=== PATIENT | female | born 1995 | race Caucasian/White ===

== ENCOUNTER 2016-11-03 17:35 | Emergency (ER) | payer OTHER ==
[~2016-11-03] VITALS: Ht 167.6 cm; Wt 51.0 kg
[~2016-11-03 17:35] MED LIST: CYCL-36 PO; DICL50 PO
[2016-11-03 17:36] VITALS: BP 125/89; PULSE 81; RESP 17; TEMP 98.1; O2SAT 99
[2016-11-03] MEDS ORDERED: OMEP20TA PO (18:06)
[2016-11-03] MEDS ORDERED: ONDANSETRON HCL 4 MG/2 ML VIAL IV ONE (18:15)
[2016-11-03] MEDS ORDERED: SODIUM CHLORIDE 0.9% FLUSH 5 ML FLUSH IVF PRN (18:15)
[2016-11-03] MEDS ORDERED: SODIUM CHLOR 0.9% 1000 ML INJ 1,000 ML IV ONE (18:15)
[2016-11-03] MEDS ORDERED: MORPHINE SULFATE 4 MG/ML INJ IV PUSH ONE (18:15)
--- NOTE | 2016-11-03 18:15 | PD ---
HPI Chief Complaint: GI Complaint Time Seen by Provider: 17:59 Travel History International Travel<30 days: No Contact w/Intl Traveler<30days: No Traveled to known affect area: No History of Present Illness HPI 21-year-old woman who presents to the emergency department complaining of abdominal pain. She states she's felt sick for the past week or so. She had nausea and vomiting that she thought was from something she ate. She has a history of gastritis in the past. She states nausea vomiting initially flared up or gastritis but she's having worsening pain in the epigastrium, right upper quadrant, radiates through to the back. She states she gets vomiting after trying to eat anything and the pain is Progressively Worse and so She Came to the Emergency Department. She's Had Chills but No Definite Fevers. No Change in Her Bowel Movement. No Urinary Symptoms. She's Never Had Any Abdominal Surgery. She Was Treated for H. pylori Several Years Ago. History Past Medical History Narrative Medical Gastritis Social History Alcohol Use: No Tobacco Use: No Allergies-Medications (Allergen,Severity, Reaction): Coded Allergies: No Known Allergies (Unverified , 11/03/16) Reported Meds & Prescriptions Reported Meds & Active Scripts Active Reported Omeprazole 20 Mg Tab 20 Mg PO DAILY Review of Systems Except as stated in HPI: all other systems reviewed are Neg Physical Exam Narrative GENERAL: This is a thin 21-year-old woman, uncomfortable but nontoxic. HEAD: Atraumatic. Normocephalic. EYES: Pupils equal and round. No scleral icterus. No injection or drainage. ENT: No nasal bleeding or discharge. Mucous membranes pink and moist. NECK: Trachea midline. No JVD. CARDIOVASCULAR: Regular rate and rhythm. No murmur appreciated. RESPIRATORY: No accessory muscle use. Clear to auscultation. Breath sounds equal bilaterally. GASTROINTESTINAL: Abdomen is flat and soft with moderate epigastric and right upper quadrant tenderness. Positive Arenas's. MUSCULOSKELETAL: No obvious deformities. No edema. NEUROLOGICAL: Awake and alert. No obvious cranial nerve deficits. Motor grossly within normal limits. Normal speech. PSYCHIATRIC: Appropriate mood and affect; insight and judgment normal. Data Data Last Documented VS Vital Signs Date Time Temp Pulse Resp B/P Pulse Ox O2 Delivery O2 Flow Rate FiO2 11/03/16 17:36 98.1 81 17 125/89 99 Orders Complete Blood Count With Diff (11/03/16 18:02) Comprehensive Metabolic Panel (11/03/16 18:02) Lipase (11/03/16 18:02) Urinalysis - C+S If Indicated (11/03/16 18:02) Iv Access Insert/Monitor (11/03/16 18:02) Ecg Monitoring (11/03/16 18:02) Oximetry (11/03/16 18:02) Sodium Chloride 0.9% Flush (Ns Flush) (11/03/16 18:15) Ed Urine Pregnancytest Poc (11/03/16 18:02) Ed Poc Ultrasound (11/03/16 18:02) Sodium Chlor 0.9% 1000 Ml Inj (Ns 1000 M (11/03/16 18:15) Ondansetron Inj (Zofran Inj) (11/03/16 18:15) Morphine Inj (Morphine Inj) (11/03/16 18:15) MDM Medical Decision Making Medical Screen Exam Complete: Yes Emergency Medical Condition: Yes Differential Diagnosis Gastritis, pancreatitis, cholecystitis, appendicitis, , UTI, other Narrative Course Medical decision making INITIAL: 20 year-old woman presents emergent from nausea vomiting epigastric and right upper quadrant abdominal pain that radiates through to the back suggestive of gastritis or cholecystitis. We'll check labs, lipase, point of care ultrasound, reassess. Procedures Procedure Narrative Point of care ultrasound: Focus transabdominal ultrasounds are limited the bedside to evaluate the gallbladder for evidence of cholecystitis. Gallbladder is enlarged. I don't see any gallstones. No gallbladder wall thickening. She does have some tenderness over the gallbladder. Moises Talley MD Nov 03, 2016 18:15
[2016-11-03 18:36] LABS: AUTOMATED NEUTROPHIL # 4.1 TH/MM3 (1.8-7.7); BASOPHIL % 0.5 % (0.0-2.0); EOSINOPHIL # 0.4 TH/MM3 (0-0.4); EOSINOPHIL % 6.1 % (0.0-4.0); HEMATOCRIT 42.2 % (35.0-46.0); HEMO FLAGS DIFF FINAL; LYMPH % 27.6 % (9.0-44.0); MEAN CELL VOLUME 85.4 FL (80.0-100.0); MEAN CORPUSCULAR HEMOGLOBIN 28.6 PG (27.0-34.0); MEAN CORPUSCULAR HGB CONC 33.6 % (32.0-36.0); MONO % 8.7 % (0.0-8.0); NEUT % 57.1 % (16.0-70.0); PLATELET COUNT 180 TH/MM3 (150-450); RED BLOOD COUNT 4.95 MIL/MM3 (4.00-5.30); RED CELL DISTRIBUTION WIDTH 12.5 % (11.6-17.2); WHITE BLOOD COUNT 7.1 TH/MM3 (4.0-11.0)
[2016-11-03 18:54] VITALS: O2SAT 97
[2016-11-03 19:08] LABS: BACTERIA, URINE RARE /hpf; BLOOD, URINE NEG (NEG); COMMENT (UR) CULT NOT INDICATED; CULTURE IF INDICATED CULT NOT INDICATED; GLUCOSE,URINE NEG (NEG); KETONE, URINE NEG (NEG); MUCUS URINE FEW /lpf (OCC); NITRITE,URINE NEG (NEG); SQUAMOUS EPITHELIAL CELL URINE 3 /hpf (0-5); URINE COLOR YELLOW (YELLW/STRAW)
[2016-11-03 19:22] LABS: ALKALINE PHOSPHATASE 73 U/L (45-117); ALT (GPT) 46 U/L (10-53); ANION GAP 11 MEQ/L (5-15); AST (GOT) 40 U/L (15-37); BLOOD UREA NITROGEN 12 MG/DL (7-18); CHLORIDE 106 MEQ/L (98-107); GLOMERULAR FILTRATION RATE 100 ML/MIN (>89); POTASSIUM 4.1 MEQ/L (3.5-5.1); SODIUM (NA) 138 MEQ/L (136-145); TOTAL BILIRUBIN ADULT 0.5 MG/DL (0.2-1.0)
--- NOTE | 2016-11-03 19:44 | RADRPT ---
EXAM DATE/TIME: 11/03/2016 18:49 [facility] COMPARISON: No previous studies available for comparison. INDICATIONS : Right upper quadrant pain. MEDICAL HISTORY : Gastritis. Nausea and vomiting. SURGICAL HISTORY : Nose surgery. ENCOUNTER: Initial ACUITY: 1 week PAIN SCORE: 10/10 LOCATION: Right upper quadrant MEASUREMENTS: LIVER: 15.7 cm length COMMON DUCT: 4 mm RIGHT KIDNEY: 10.2 x 5.3 x 3.8 cm FINDINGS: LIVER: Normal echotexture without focal lesion or ductal dilatation. COMMON DUCT: No intraluminal mass or stone visualized. GALLBLADDER: Contains no stones, demonstrates no wall thickening or pericholecystic fluid. There is sludge in the gallbladder. PANCREAS: The visualized portions are within normal limits. RIGHT KIDNEY: No evidence of hydronephrosis, stone, or mass. CONCLUSION: 1. Gallbladder sludge and mild distention of the gallbladder. No wall thickening or pericholecystic f luid and negative sonographic Arenas's sign. 2. Otherwise unremarkable. Vince Acosta MD on November 03, 2016 at 19:41 Board Certified Radiologist. This report was verified electronically.
[2016-11-03] MEDS ORDERED: ZOFR4TAB3 SL (19:57)
--- NOTE | 2016-11-03 19:59 | PD ---
Data Data Last Documented VS Vital Signs Date Time Temp Pulse Resp B/P Pulse Ox O2 Delivery O2 Flow Rate FiO2 11/03/16 18:54 97 Room Air 11/03/16 17:36 98.1 81 17 125/89 Orders Complete Blood Count With Diff (11/03/16 18:02) Comprehensive Metabolic Panel (11/03/16 18:02) Lipase (11/03/16 18:02) Urinalysis - C+S If Indicated (11/03/16 18:02) Iv Access Insert/Monitor (11/03/16 18:02) Ecg Monitoring (11/03/16 18:02) Oximetry (11/03/16 18:02) Sodium Chloride 0.9% Flush (Ns Flush) (11/03/16 18:15) Ed Urine Pregnancytest Poc (11/03/16 18:02) Ed Poc Ultrasound (11/03/16 18:02) Sodium Chlor 0.9% 1000 Ml Inj (Ns 1000 M (11/03/16 18:15) Ondansetron Inj (Zofran Inj) (11/03/16 18:15) Morphine Inj (Morphine Inj) (11/03/16 18:15) Us Abdomen Gallbladder (11/03/16 ) Al-Mag Hy-Si 40-40-4 Mg/Ml Liq (Mag-Al P (11/03/16 20:00) Lidocaine 2% Viscous (Xylocaine 2% Visco (11/03/16 20:00) Labs Laboratory Tests Test 11/03/16 11/03/16 18:15 18:50 White Blood Count 7.1 TH/MM3 Red Blood Count 4.95 MIL/MM3 Hemoglobin 14.2 GM/DL Hematocrit 42.2 % Mean Corpuscular Volume 85.4 FL Mean Corpuscular Hemoglobin 28.6 PG Mean Corpuscular Hemoglobin 33.6 % Concent Red Cell Distribution Width 12.5 % Platelet Count 180 TH/MM3 Mean Platelet Volume 8.9 FL Neutrophils (%) (Auto) 57.1 % Lymphocytes (%) (Auto) 27.6 % Monocytes (%) (Auto) 8.7 % Eosinophils (%) (Auto) 6.1 % Basophils (%) (Auto) 0.5 % Neutrophils # (Auto) 4.1 TH/MM3 Lymphocytes # (Auto) 2.0 TH/MM3 Monocytes # (Auto) 0.6 TH/MM3 Eosinophils # (Auto) 0.4 TH/MM3 Basophils # (Auto) 0.0 TH/MM3 CBC Comment DIFF FINAL Differential Comment Sodium Level 138 MEQ/L Potassium Level 4.1 MEQ/L Chloride Level 106 MEQ/L Carbon Dioxide Level 21.0 MEQ/L Anion Gap 11 MEQ/L Blood Urea Nitrogen 12 MG/DL Creatinine 0.72 MG/DL Estimat Glomerular Filtration 100 ML/MIN Rate Random Glucose 84 MG/DL Calcium Level 8.0 MG/DL Total Bilirubin 0.5 MG/DL Aspartate Amino Transf 40 U/L (AST/SGOT) Alanine Aminotransferase 46 U/L (ALT/SGPT) Alkaline Phosphatase 73 U/L Total Protein 7.7 GM/DL Albumin 4.0 GM/DL Lipase 149 U/L Urine Color YELLOW Urine Turbidity CLEAR Urine pH 6.0 Urine Specific [place] 1.029 Urine Protein TRACE mg/dL Urine Glucose (UA) NEG mg/dL Urine Ketones NEG mg/dL Urine Occult Blood NEG Urine Nitrite NEG Urine Bilirubin NEG Urine Urobilinogen LESS THAN 2.0 MG/DL Urine Leukocyte Esterase MOD Urine RBC 3 /hpf Urine WBC 2 /hpf Urine Squamous Epithelial 3 /hpf Cells Urine Bacteria RARE /hpf Urine Mucus FEW /lpf Microscopic Urinalysis Comment CULT NOT INDICATED MDM Supervised Visit with IDANIA: No Narrative Course Patient care assumed by me from Dr. Talley at 1900. Is a 21-year-old female presents with epigastric and some right upper quadrant abdominal pain. Patient was given Zofran and fluids as well as morphine in emerged Department complaints of burning abdominal pain to me. She was given a GI cocktail which completely abated her symptoms. Ultrasound was obtained of her right upper quadrant which showed some biliary sludge without any other evidence for cholecystitis and ultrasound regarding Arenas sign is negative. Her LFTs within normal limits, bilirubin negative, alkaline phosphatase negative. Patient feeling better after GI cocktail requests discharge. Discussed with her to avoid fatty foods for the time being and recommended follow-up the primary care provider. If her symptoms would return if she start running fever nausea vomiting or diarrhea with suggested she come back in emerged permit to be reevaluated. Diagnosis Primary Impression: Epigastric abdominal pain Patient Instructions: Gastritis (DC), General Instructions Additional Instruction: Try some Maalox or Pepto-Bismol which she can buy [id number] as needed for the burning sensation in her stomach. Follow-up with your primary care physician. Med/Other Pt SpecificInfo: Prescription(s) given Scripts Ondansetron Odt (Zofran Odt)4 Mg Tab4 Mg SL Q6HR PRN (Nausea/Vomiting) #30 TAB Ref 0 Prov:Lusi Norton MD 11/03/16 Disposition: 01 DISCHARGE HOME Condition: Stable Luis Norton MD Nov 03, 2016 19:59
[2016-11-03] MEDS ORDERED: ALUMINUM/MAGNESIUM/SIMETH 30 ML CUP PO ONE (20:00)
[2016-11-03] MEDS ORDERED: LIDOCAINE VISCOUS 2% SOLN 15 ML UDC PO ONE (20:00)
== END 2016-11-03 20:40 | disposition home or self-care (01) ==
LOC: NEPC 17:35
DX: R10.13 Epigastric pain (principal); R10.11 Right upper quadrant pain
CPT/HCPCS: 76705; 80053; 81001; 83690; 84703; 85025; 96361; 96374; 96375; 99284; J2270; J2405; J7030

== ENCOUNTER 2016-11-04 17:14 | Observation (INO) | payer OTHER ==
[~2016-11-04] VITALS: Ht 59.9 cm; Wt 50.0 kg
[~2016-11-04 17:14] MED LIST changes: -CYCL-36 PO; -DICL50 PO; +OMEP20TA PO; +ZOFR4TAB3 SL
[2016-11-04 17:15] VITALS: BP 128/76; PULSE 95; RESP 20; TEMP 97.7; O2SAT 98
[2016-11-04 21:41] VITALS: BP 112/55; PULSE 87; RESP 16; O2SAT 100
[2016-11-04] MEDS ORDERED: SODIUM CHLOR 0.9% 1000 ML INJ 1,000 ML IV SCH (21:48)
[2016-11-04 21:51] VITALS: BP 116/75; PULSE 91; RESP 16; O2SAT 100
--- NOTE | 2016-11-04 21:55 | PD ---
HPI Chief Complaint: Abdominal Pain Time Seen by Provider: 21:48 Travel History International Travel<30 days: No Contact w/Intl Traveler<30days: No Traveled to known affect area: No History of Present Illness HPI 21-year-old female with history of gastritis, seen yesterday for abdominal pain with full workup, had gallbladder sludging, presents back to the ER today for ongoing vomiting and epigastric abdominal pains which she currently rates at 8 out of 10. She states that she has vomited small streaks of blood. She denies fevers, diarrhea, or other symptoms. She is not sure of exacerbating or alleviating factors. Modifying Factors: None Associated Signs & Symptoms: Epigastric abdominal pains, nausea and vomiting Risk Factors: History of gastritis, gallbladder sludging PFSH Past Medical History Diminished Hearing: No Gastrointestinal Disorders: Yes (gastritis) ?: Not LMP: 10/21/16 : 0 Past Surgical History Other Surgery: Yes (nose sx) Social History Alcohol Use: No Tobacco Use: No Substance Use: No Allergies-Medications (Allergen,Severity, Reaction): Coded Allergies: No Known Allergies (Unverified , 11/04/16) Reported Meds & Prescriptions Reported Meds & Active Scripts Active Zofran Odt (Ondansetron Odt) 4 Mg Tab 4 Mg SL Q6HR PRN Reported Omeprazole 20 Mg Tab 20 Mg PO DAILY Review of Systems Except as stated in HPI: all other systems reviewed are Neg Physical Exam Narrative GENERAL: Well-nourished, well-developed young female patient in mild distress. SKIN: Warm and dry. HEAD: Normocephalic. EYES: No scleral icterus. No injection or drainage. NECK: Supple, trachea midline. CARDIOVASCULAR: Regular rate and rhythm without murmurs, gallops, or rubs. RESPIRATORY: Breath sounds equal bilaterally. No accessory muscle use. GASTROINTESTINAL: Abdomen soft, epigastric tenderness without guarding or rebound, nondistended. MUSCULOSKELETAL: No cyanosis, or edema. BACK: Nontender without obvious deformity. No CVA tenderness. Data Data Last Documented VS Vital Signs Date Time Temp Pulse Resp B/P Pulse Ox O2 Delivery O2 Flow Rate FiO2 11/04/16 21:51 91 16 116/75 100 Room Air 11/04/16 17:15 97.7 Orders Complete Blood Count With Diff (11/04/16 21:48) Comprehensive Metabolic Panel (11/04/16 21:48) Lipase (11/04/16 21:48) Ct Abd/Pel W Iv Contrast(Rout) (11/04/16 21:48) Iv Access Insert/Monitor (11/04/16 21:48) Ecg Monitoring (11/04/16 21:48) Oximetry (11/04/16 21:48) Ondansetron Inj (Zofran Inj) (11/04/16 22:00) Sodium Chlor 0.9% 1000 Ml Inj (Ns 1000 M (11/04/16 21:48) Sodium Chloride 0.9% Flush (Ns Flush) (11/04/16 22:00) Famotidine Inj (Pepcid Inj) (11/04/16 22:00) Al-Mag Hy-Si 40-40-4 Mg/Ml Liq (Mag-Al P (11/04/16 22:00) Lidocaine 2% Viscous (Xylocaine 2% Visco (11/04/16 22:00) Iohexol 350 Inj (Omnipaque 350 Inj) (11/04/16 23:56) Admit Order (Ed Use Only) (11/05/16 00:56) Hydromorphone Pf Inj (Dilaudid Pf Inj) (11/05/16 01:00) Ondansetron Inj (Zofran Inj) (11/05/16 01:00) Labs Laboratory Tests Test 11/04/16 21:55 White Blood Count 8.8 TH/MM3 Red Blood Count 4.61 MIL/MM3 Hemoglobin 13.4 GM/DL Hematocrit 39.1 % Mean Corpuscular Volume 84.8 FL Mean Corpuscular Hemoglobin 29.2 PG Mean Corpuscular Hemoglobin 34.4 % Concent Red Cell Distribution Width 12.3 % Platelet Count 174 TH/MM3 Mean Platelet Volume 8.8 FL Neutrophils (%) (Auto) 76.3 % Lymphocytes (%) (Auto) 15.4 % Monocytes (%) (Auto) 6.1 % Eosinophils (%) (Auto) 1.7 % Basophils (%) (Auto) 0.5 % Neutrophils # (Auto) 6.7 TH/MM3 Lymphocytes # (Auto) 1.4 TH/MM3 Monocytes # (Auto) 0.5 TH/MM3 Eosinophils # (Auto) 0.2 TH/MM3 Basophils # (Auto) 0.0 TH/MM3 CBC Comment DIFF FINAL Differential Comment Sodium Level 139 MEQ/L Potassium Level 3.6 MEQ/L Chloride Level 104 MEQ/L Carbon Dioxide Level 25.5 MEQ/L Anion Gap 10 MEQ/L Blood Urea Nitrogen 8 MG/DL Creatinine 0.75 MG/DL Estimat Glomerular Filtration 96 ML/MIN Rate Random Glucose 86 MG/DL Calcium Level 8.4 MG/DL Total Bilirubin 0.8 MG/DL Aspartate Amino Transf 31 U/L (AST/SGOT) Alanine Aminotransferase 54 U/L (ALT/SGPT) Alkaline Phosphatase 66 U/L Total Protein 7.8 GM/DL Albumin 4.2 GM/DL Lipase 113 U/L [facility] Medical Decision Making Medical Screen Exam Complete: Yes Emergency Medical Condition: Yes Medical Record Reviewed: Yes Interpretation(s) Laboratory Tests Test 11/04/16 21:55 Neutrophils (%) (Auto) 76.3 % (16.0-70.0) Calcium Level 8.4 MG/DL (8.5-10.1) Alanine Aminotransferase 54 U/L (10-53) (ALT/SGPT) Last 24 hours Impressions Abdomen/Pelvis CT 11/04/162147 Signed Impressions: Service Date/Time: Friday, November 04, 2016 23:53 - CONCLUSION: 1. Free fluid in the deep pelvis as well within the range of physiologic demonstrating female. 1.8 cm left ovarian cyst and some prominence of the endometrial stripe all likely related to phase of menses. 2. However, there is some mild gallbladder wall thickening versus pericholecystic fluid. 3. Otherwise negative. Pieter Cruz MD Differential Diagnosis Epigastric abdominal pains, nausea, vomitinggastritis versus gastroenteritis versus pancreatitis versus cholecystitis versus dehydration versus metabolic issues Narrative Course Lab work was fairly unremarkable. She was given GI cocktail and her pain improved in the epigastrium. However, on palpation she is now having right upper quadrant tenderness which she currently rates at a 9 out of 10. CAT scan shows questionable pericholecystic fluid and at this point, I am worried of a possible underlying cholecystitis. Case was discussed with Dr. Grimes for admission. Diagnosis Primary Impression: ACUTE CHOLECYSTITIS Admitting Information Admitting Physician Requests: Admit Emerita Sena MD Nov 04, 2016 21:55
[2016-11-04] MEDS ORDERED: LIDOCAINE VISCOUS 2% SOLN 15 ML UDC PO ONE (22:00)
[2016-11-04] MEDS ORDERED: SODIUM CHLORIDE 0.9% FLUSH 5 ML FLUSH IVF PRN (22:00)
[2016-11-04] MEDS ORDERED: ONDANSETRON HCL 4 MG/2 ML VIAL IVP ONE (22:00)
[2016-11-04] MEDS ORDERED: ALUMINUM/MAGNESIUM/SIMETH 30 ML CUP PO ONE (22:00)
[2016-11-04] MEDS ORDERED: FAMOTIDINE 20 MG/2 ML VIAL IV PUSH ONE (22:00)
[2016-11-04 22:18] LABS: AUTOMATED NEUTROPHIL # 6.7 TH/MM3 (1.8-7.7); BASOPHIL % 0.5 % (0.0-2.0); EOSINOPHIL # 0.2 TH/MM3 (0-0.4); EOSINOPHIL % 1.7 % (0.0-4.0); HEMATOCRIT 39.1 % (35.0-46.0); HEMO FLAGS DIFF FINAL; LYMPH % 15.4 % (9.0-44.0); LYMPHOCYTE # 1.4 TH/MM3 (1.0-4.8); MEAN CELL VOLUME 84.8 FL (80.0-100.0); MEAN CORPUSCULAR HEMOGLOBIN 29.2 PG (27.0-34.0); MEAN CORPUSCULAR HGB CONC 34.4 % (32.0-36.0); MONO % 6.1 % (0.0-8.0); NEUT % 76.3 % (16.0-70.0); PLATELET COUNT 174 TH/MM3 (150-450); RED BLOOD COUNT 4.61 MIL/MM3 (4.00-5.30); RED CELL DISTRIBUTION WIDTH 12.3 % (11.6-17.2); WHITE BLOOD COUNT 8.8 TH/MM3 (4.0-11.0)
[2016-11-04 22:39] LABS: ANION GAP 10 MEQ/L (5-15); AST (GOT) 31 U/L (15-37); BICARBONATE 25.5 MEQ/L (21.0-32.0); BLOOD UREA NITROGEN 8 MG/DL (7-18); CHLORIDE 104 MEQ/L (98-107); GLOMERULAR FILTRATION RATE 96 ML/MIN (>89); POTASSIUM 3.6 MEQ/L (3.5-5.1); SODIUM (NA) 139 MEQ/L (136-145)
[2016-11-04 22:43] LABS: ALKALINE PHOSPHATASE 66 U/L (45-117); ALT (GPT) 54 U/L (10-53); TOTAL BILIRUBIN ADULT 0.8 MG/DL (0.2-1.0)
[2016-11-04] MEDS ORDERED: IOHEXOL 350 MG/ML 10 ML VIAL (for RAD DIAG) IV ONE (23:56)
--- NOTE | 2016-11-05 00:15 | RADRPT ---
EXAM DATE/TIME: 11/04/2016 23:53 [facility] COMPARISON: No previous studies available for comparison. INDICATIONS : Abdominal pain and vomiting blood for one day. IV CONTRAST: 70 cc Omnipaque 350 (iohexol) IV ORAL CONTRAST: No oral contrast ingested. RADIATION DOSE: 4.90 CTDIvol (mGy) MEDICAL HISTORY : gastritis SURGICAL HISTORY : None. ENCOUNTER: Initial ACUITY: 1 day PAIN SCALE: 8/10 LOCATION: abdomen TECHNIQUE: Volumetric scanning of the abdomen and pelvis was performed. Using automated exposure control and ad justment of the mA and/or kV according to patient size, radiation dose was kept as low as reasonably achievable to obtain optimal diagnostic quality images. FINDINGS: LOWER LUNGS: The visualized lower lungs are clear. LIVER: Homogeneous density without lesion. There is no dilation of the biliary tree. No calcified gallston es. There is some gallbladder wall thickening or pericholecystic fluid. SPLEEN: Normal size without lesion. PANCREAS: Within normal limits. KIDNEYS: Normal in size and shape. There is no mass, stone or hydronephrosis. ADRENAL GLANDS: Within normal limits. VASCULAR: There is no aortic aneurysm. BOWEL/MESENTERY: The stomach, small bowel, and colon demonstrate no acute abnormality. There is no free intraperitone al air or fluid. ABDOMINAL WALL: Within normal limits. RETROPERITONEUM: There is no lymphadenopathy. BLADDER: No wall thickening or mass. REPRODUCTIVE: Small amount of free fluid within the pelvis, well within the range of physiologic for a menstruating female. 1.8 cm left ovarian cyst. INGUINAL: There is no lymphadenopathy or hernia. MUSCULOSKELETAL: Within normal limits for patient age. CONCLUSION: 1. Free fluid in the deep pelvis as well within the range of physiologic demonstrating female. 1.8 cm left ovarian cyst and some prominence of the endometrial stripe all likely related to phase of mense s. 2. However, there is some mild gallbladder wall thickening versus pericholecystic fluid. 3. Otherwise negative. Pieter Cruz MD on November 05, 2016 at 0:11 Board Certified Radiologist. This report was verified electronically.
[2016-11-05] MEDS ORDERED: HYDROmorphone HCL PF 1 MG/ML VIAL IV PUSH ONE (01:00)
[2016-11-05] MEDS ORDERED: ONDANSETRON HCL 4 MG/2 ML VIAL IV PUSH ONE (01:00)
[2016-11-05] MEDS ORDERED: KETOROLAC TROMETHAMINE 30 MG/ML (IVP) VIAL IV PUSH PRN (01:30)
[2016-11-05] MEDS ORDERED: ACETAMINOPHEN 325 MG TAB PO PRN (01:30)
[2016-11-05] MEDS: SODIUM CHLOR 0.9% 1000 ML INJ 1,000 ML IV SCH ×3 (02:49→21:25)
[2016-11-05 03:48] VITALS: BP 102/56; PULSE 83; RESP 17; TEMP 98.2; O2SAT 100
[2016-11-05 08:12] VITALS: BP 87/48; PULSE 84; RESP 15; TEMP 98; O2SAT 99
[2016-11-05] MEDS: HYDROmorphone HCL PF 1 MG/ML VIAL IV PUSH PRN ×2 (08:13→15:36)
[2016-11-05] MEDS: ONDANSETRON HCL 4 MG/2 ML VIAL IV PUSH PRN (08:13)
[2016-11-05 11:37] VITALS: BP 101/50; PULSE 105; RESP 17; TEMP 98; O2SAT 100
[2016-11-05] MEDS ORDERED: IBUPROFEN 600 MG TAB PO PRN (11:45)
--- NOTE | 2016-11-05 12:13 | MH ---
cc: MICHAEL GARCIA DATE OF ADMISSION 11/05/2016 CHIEF COMPLAINT Right upper quadrant pain. 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 The patient states that she initially felt that she had eaten some bad food, however, she denies any diarrhea, fevers, chills, night sweats or any previous episodes like this. The patient states she has had persistent right upper quadrant pain with radiation to her right flank and back. The patient states this pain is now made worse by taking in food and has taken in very little food or water in the last five days. The patient was seen in the emergency department and released previously and returned to [facility] with recurrent nausea, vomiting and pain. The patient underwent evaluation including a CT scan of the abdomen pelvis which did show some fluid around the gallbladder and is clinically suspicious for acute cholecystitis versus biliary colic. The patient was admitted on observation status due to inability to tolerate p.o. intake and for pain control. REVIEW OF SYSTEMS A 12-point review of systems was discussed with the patient and is negative except for the pertinent positives mentioned above in the history of present illness. PAST MEDICAL HISTORY None PAST SURGICAL HISTORY None SOCIAL HISTORY The patient denies alcohol, tobacco or illicit drug use. ALLERGIES NO KNOWN DRUG ALLERGIES. MEDICATIONS Occasionally uses Omeprazole. PHYSICAL EXAM VITAL SIGNS: Temperature 98 degrees, heart rate 105, blood pressure 101/50, O2 saturation 100%. GENERAL: The patient is a thin female in no acute distress. She appears uncomfortable who does not appear acute or chronically ill. HEAD: Normocephalic, atraumatic. EYES, EARS, NOSE AND THROAT: Pupils round, reactive, to light. Sclerae is anicteric. Mucous membranes are moist. NECK: Supple. JVD. LUNGS: Breath sounds are present bilaterally. Nonlabored breathing pattern. HEART: Regular rate and rhythm. ABDOMEN: Scaphoid and tender to palpation focally over the gallbladder with no other tenderness. Positive Arenas sign. No surgical scars, hernias, or ascites. Normal bowel sounds. EXTREMITIES: No clubbing, cyanosis or edema. BACK: No CVA tenderness. NEUROLOGIC: The patient is oriented x4 and moving all extremities focally. Cranial nerves II-XII are grossly intact. LABORATORY VALUES Within normal limits with a white blood cell count 8.8. IMAGING STUDIES Reveals fluid around the gallbladder concerning for possible gallbladder disease with no discernible gallstones. ASSESSMENT AND PLAN The patient is a 18 year-old female admitted for presumed biliary colic. The patient has persistent pain throughout the night with continued nausea and positive Arenas sign. Despite the patient having minimal laboratory derangements or fever, I feel with her five days of pain likely does have an subacute or acute cholecystitis at this time. I explained this to her and gave her treatment options including laparoscopic cholecystectomy, as well as nonoperative management. The patient has declined surgery for treatment at this time. She would like to discuss this with her family as she is from [place], however she may consent to surgery in the next 24-48 hours. She would like to pursue a nonoperative management at this time. I explained the risks, benefits, and alternatives to this including this risk of failure or disease progression. We will start the patient on IV antibiotics and try a fat-free diet with inflammatories and analgesics at this time. If the patient clinically improves significantly, she can potentially be discharged to follow up with me. However, if the patient has any clinical deterioration or continued pain, she states that she may reconsider surgery in that situation. MD SUMI Giles/COLEEN 11:47 AM /12:03 PM
[2016-11-05] MEDS: PIPERACIL-TAZO 3.375 GM PREMIX 50 ML IV SCH ×2 (13:13→21:24)
[2016-11-05 14:55] VITALS: BP 94/51; PULSE 102; RESP 19; TEMP 98.8; O2SAT 99
[2016-11-05] MEDS: LOPERAMIDE HCL 2 MG CAP PO PRN ×2 (16:38→21:24)
[2016-11-05 20:14] VITALS: BP 99/56; PULSE 86; RESP 18; TEMP 98; O2SAT 97
[2016-11-05 20:25] LABS: C. DIFF EPI 027 PRESUMPTIVE NEGATIVE (NEGATIVE); C. DIFF TOXIN PCR NEGATIVE (NEGATIVE)
[2016-11-05] MEDS: ACETAMINOPHEN/HYDROcodone 325 MG/5 MG TAB PO PRN (23:04)
[2016-11-06] VITALS (8 sets, daily range): BP systolic 86–118; BP diastolic 48–66; PULSE 68–100; RESP 16–18; TEMP 98–99.4; O2SAT 95–100
[2016-11-06] MEDS: PIPERACIL-TAZO 3.375 GM PREMIX 50 ML IV SCH ×4 (01:59→20:01)
[2016-11-06] MEDS: ONDANSETRON HCL 4 MG/2 ML VIAL IV PUSH PRN ×2 (04:15→18:51)
[2016-11-06] MEDS: HYDROmorphone HCL PF 1 MG/ML VIAL IV PUSH PRN (04:56)
[2016-11-06] MEDS: SODIUM CHLOR 0.9% 1000 ML INJ 1,000 ML IV SCH ×2 (04:59→20:02)
--- NOTE | 2016-11-06 11:09 | HHI.PR ---
Subjective Subjective Notes pain over night, still cannot tolerate PO Objective Vitals/I&O Vital Signs Date Time Temp Pulse Resp B/P Pulse Ox O2 Delivery O2 Flow Rate FiO2 11/06/16 08:08 98.2 88 16 99/56 99 11/04/16 21:51 Room Air Labs Laboratory Tests Test 11/05/16 16:50 Stool C. difficile Toxin (PCR) NEGATIVE Stl C. difficile Toxin PRESUMPTIVE Epiderm 027 NEGATIVE Date/Time Procedure Status Source Growth 11/05/16 16:50 Cryptosporidium Exam Received Stool Stool Pending 11/05/16 16:50 Giardia Antigen ([facility]IXON) Received Stool Stool Pending 11/05/16 16:50 Received Stool Stool Pending A/P Assessment and Plan 21yo with acute cholecystitis, stable. - patient wants surgery now, feels no better with ABX and pain meds, cannot eat due to nausea - will schedule lap magaly - d/w patient r/b/a to Conrado Phillips MD Nov 06, 2016 11:09
[2016-11-06] MEDS: ACETAMINOPHEN/HYDROcodone 325 MG/5 MG TAB PO PRN (15:22)
[2016-11-06] MEDS: MORPHINE SULFATE 4 MG/ML INJ IV PUSH PRN (20:03)
[2016-11-07] MEDS: PIPERACIL-TAZO 3.375 GM PREMIX 50 ML IV SCH ×4 (00:49→18:58)
[2016-11-07] MEDS: MORPHINE SULFATE 4 MG/ML INJ IV PUSH PRN ×3 (00:51→21:12)
[2016-11-07 03:25] VITALS: BP 87/48; PULSE 86; RESP 18; TEMP 98.1; O2SAT 98
[2016-11-07] MEDS: SODIUM CHLOR 0.9% 1000 ML INJ 1,000 ML IV SCH ×3 (04:33→21:12)
[2016-11-07 07:35] VITALS: BP 91/54; PULSE 85; RESP 14; TEMP 98.1; O2SAT 100
[2016-11-07] MEDS ORDERED: NEOSTIGMINE 3 MG/3 ML SYR IV ONE (09:37)
[2016-11-07] MEDS ORDERED: PROPOFOL 200 MG/20 ML AMP IV ONE (09:37)
[2016-11-07] MEDS ORDERED: PHENYLEPH/NS 1000 MCG/10 ML SYR IV ONE (09:38)
[2016-11-07] MEDS ORDERED: LACTATED RINGER'S 1000 ML INJ 1,000 ML IV ONE (09:38)
[2016-11-07] MEDS ORDERED: KETOROLAC TROMETHAMINE 60 MG/2 ML (IM) VIAL IM ONE (09:38)
[2016-11-07] MEDS ORDERED: BUPIVACAINE/EPINEPHRINE 0.25% 50 ML VIAL ONE (12:18)
[2016-11-07] MEDS ORDERED: MIDAZOLAM HCL 2 MG/2 ML VIAL ONE (12:33)
[2016-11-07] MEDS ORDERED: ONDANSETRON HCL 4 MG/2 ML VIAL ONE (12:33)
[2016-11-07] MEDS ORDERED: fentaNYL CITRATE 250 MCG/5 ML AMP ONE (12:33)
[2016-11-07] MEDS ORDERED: FAMOTIDINE 20 MG/2 ML VIAL ONE (12:33)
[2016-11-07] MEDS ORDERED: ACETAMINOPHEN 1000 MG/100 ML VIAL IV ONE (12:34)
[2016-11-07] MEDS ORDERED: DEXAMETHASONE SOD PHOS 4 MG/ML VIAL ONE (12:34)
[2016-11-07] MEDS ORDERED: PIPERACILLIN-TAZOBACTAM INJ 3.375 GM VIAL XX ONE (13:00)
--- NOTE | 2016-11-07 14:12 | HHI.PR ---
Immediate Post Op Note Procedure Date: Nov 07, 2016 Pre Op Diagnosis: (1) Acute cholecystitis Post Op Diagnosis: (1) Acute cholecystitis Surgeon: Conrado Valladares Roll Coverer(s): staff Procedure: laparoscopic cholecystectomy Findings: acute edema c/w acute cholecystitis Complications: none Specimen(s) removed: GB Estimated blood loss: 10ml Anesthesia: General, Local Drains: None IVF Patient to: PACU Patient Condition: Good Conrado Valladares MD Nov 07, 2016 14:12
[2016-11-07] MEDS ORDERED: *morphine SULFATE 8 MG/ML PERIprocedure ONLY ONE (15:11)
[2016-11-07] MEDS ORDERED: DO NOT ADM ANY ANTICOAGULANT DRUGS XX PRN (15:15)
[2016-11-07 17:07] VITALS: BP 106/58; PULSE 82; RESP 20; TEMP 96.9; O2SAT 100
[2016-11-07 19:49] VITALS: O2SAT 96
[2016-11-07 20:00] VITALS: BP 102/60; PULSE 98; RESP 20; TEMP 98.4; O2SAT 100
[2016-11-08] VITALS: BP 108/66; PULSE 97; RESP 20; TEMP 98; O2SAT 98
[2016-11-08] MEDS: PIPERACIL-TAZO 3.375 GM PREMIX 50 ML IV SCH ×3 (01:00→12:58)
[2016-11-08] MEDS: ACETAMINOPHEN/HYDROcodone 325 MG/5 MG TAB PO PRN ×3 (03:42→13:00)
[2016-11-08 04:33] VITALS: BP 110/72; PULSE 95; RESP 20; TEMP 97.6; O2SAT 97
[2016-11-08 08:00] VITALS: BP 107/67; PULSE 78; RESP 18; TEMP 96.9; O2SAT 99
[2016-11-08 12:00] VITALS: BP 92/51; PULSE 96; RESP 18; TEMP 96.6; O2SAT 99
[2016-11-08 13:54] VITALS: RESP 16
[2016-11-08] MEDS ORDERED: HYDR-3533 PO (15:35)
--- NOTE | 2016-11-11 14:40 | MP ---
cc: MICHAEL GARCIA DATE OF SURGERY: 11/07/2016 PREOPERATIVE DIAGNOSIS Acute cholecystitis. POSTOPERATIVE DIAGNOSIS Acute cholecystitis. PROCEDURE Laparoscopic cholecystectomy. ATTENDING SURGEON Dr. Garcia. REFERRAL AND INFORMATION AIDE Staff. ANESTHESIA General and local anesthetic. BLOOD LOSS Less than 25 ccs. FINDINGS Severe acute cholecystitis with no chronic findings, no definitive gallstones. 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 On evaluation with a CAT scan she was found to have significant edema of her gallbladder and uncontrolled pain and vomiting and inability to tolerate p.o. The patient was admitted to the surgical service for pain control and surgical evaluation. The patient initially declined surgery and wished to pursue medical management with antibiotics and low-fat diet for her treatment of acute cholecystitis. However, this failed and the patient had increasing pain despite n.p.o. and antibiotics over the next 24 hours. The patient then wished to undergo laparoscopic cholecystectomy. The risks, benefits and alternatives were explained to the patient prior to the procedure. She agreed to undergo the procedure. PROCEDURE After informed consent was obtained the patient was taken to the operating room and placed in the supine position and placed under general endotracheal anesthesia. The patient's abdomen was prepped and draped in sterile fashion. Time-out was performed. The abdomen was entered through a Dolan direct visualization technique through a curvilinear incision below the umbilicus. We used local anesthetic at this area as well as at all port site. We dissected down to the subcutaneous tissue and opened the midline fascia in a vertical type fashion with a 15 blade scalpel. We then were able to directly visualize the abdominal cavity and place a 10 mm balloon trocar into the abdomen. We insufflated the abdomen and surveyed the abdomen with 5 mm 30 degree camera and there was no evidence of any complication from our entry. We then placed three additional ports which were 5 mm ports under visualization under the laparoscope and all in the right upper quadrant. We then grasped the gallbladder which was very distended and inflamed acutely, with the graspers. This was very tense and we did decompress the gallbladder with the suction cleaning validation consultant device and no stones or sludge was seen, there was dark almost black bile was expressed from the gallbladder. We then were able to use electrocautery to divide the distal peritoneum over the gallbladder and the triangle of Calot. The critical view of safety was obtained and we dissected out the cystic duct with electrocautery with [place] dissector. We placed double clip proximal, single clip distal in the cystic duct and a single clip proximal on the cystic artery without difficulty. We divided these with endoshears. We used hook electrocautery to remove the gallbladder from the gallbladder fossa without difficulty. We removed it from the abdomen with a EndoCatch bag through the periumbilical Dolan port. We then suctioned and irrigated out the field and suctioned out small amount of inflammatory fluid and small areas of blood clots. We did note that the clip on the cystic artery had partially dislodged and therefore we used an Endoloop Vicryl suture material to place around both cystic duct and the cystic artery proximal to the clips. We had again 100% hemostasis and no evidence of any bile leak or complication at that point. We irrigated out the right upper quadrant until all suctionate returned clear. At this point in time we removed ports from the abdomen and expressed pneumoperitoneum. There was no evidence of any other intraabdominal pathology of cholecystitis. We removed the 10 mm port and closed this with a [id number] 0 Vicryl suture at the anterior rectus for complete closure. We then closed the skin with Monocryl and Dermabond. The patient at this point in time was discontinued from anesthesia and taken to the Post Anesthesia Care Unit in stable condition. The patient tolerated the procedure well. There were no apparent complications. All counts were correct. I was present and scrubbed for the entire procedure. MD SUMI Giles/BRIANNE /7:09 PM /10:44 AM JASON
--- NOTE | 2016-12-03 10:53 | HHI.DS ---
Discharge Summary Admission Date Nov 05, 2016 at 00:58 Discharge Date: Nov 08, 2016 Admitting Diagnosis acute cholecystitis Brief History 21 year old female with acute cholecystis. PE at Discharge Alert and awake Cardio: RRR Resp: CTAB Abd: lap sites c/d/i; post op tenderness at incision sites Hospital Course This is a 21 year old female s/p lap magaly for acute cholecystis. She had no post-operative complications. Her pain was controlled using oral pain medications. She was able to tolerate a regular diet. She was DCed home and will follow up in the office. Pt Condition on Discharge: Good Discharge Disposition: Discharge Home Discharge Instructions DIET: Follow Instructions for: As Tolerated, No Restrictions Activities you can perform: See Additionl Instruction Other Activity Instructions: Okay to shower starting tomorrow Pat incision dry Brisa Gray Dec 03, 2016 10:53
== END 2016-11-08 15:47 | disposition home or self-care (01) ==
LOC: NEPC 17:14 → NEDA 11-05 00:58 → NEPFCDU 11-05 02:51 → N07B 11-07 14:26
PROVIDERS: ADMIT Surgery; ATTEND Surgery
DX: K81.0 Acute cholecystitis (principal); K81.1 Chronic cholecystitis
CPT/HCPCS: 00790; 47562; 74177; 80053; 83690; 85025; 87328; 87329; 87493; 87506; 88304; 96361; 96374; 96375; 99285; G0378; J0131; J1100; J1170; J1885; J2250; J2270; J2370; J2405; J2543; J2710; J3010; J7030; J7120; Q9967

== ENCOUNTER 2017-10-31 19:47 | Emergency (ER) | payer OTHER ==
[~2017-10-31] VITALS: Ht 157.5 cm; Wt 52.0 kg
[~2017-10-31 19:47] MED LIST changes: +HYDR-3533 PO; -OMEP20TA PO; +OMEP20TA93 PO
[2017-10-31 19:57] VITALS: BP 117/71; PULSE 103; RESP 16; TEMP 98.8; O2SAT 100
--- NOTE | 2017-10-31 22:52 | PD ---
HPI Chief Complaint: Head Injury Time Seen by Provider: 22:20 Travel History International Travel<30 days: No Contact w/Intl Traveler<30days: No Traveled to known affect area: No History of Present Illness HPI Patient is a 22 year old female who comes in after she collided with another person while playing basketball tonight. She says she did not pass out, but felt dazed when it occurred. She denies any other injuries. She complains of pain to her head where it hit. She has not taken anything for pain. She does not know when her last tetanus vaccine was. Severity is mild. PFSH Past Medical History Asthma: No Blood Disorders: No Anxiety: No Depression: No Heart Rhythm Problems: No Cancer: No Cardiovascular Problems: No High Cholesterol: No Chemotherapy: No Chest Pain: No Congestive Heart Failure: No COPD: No Diabetes: No Diminished Hearing: No Endocrine: No Gastrointestinal Disorders: Yes (gastritis) Genitourinary: No Immune Disorder: No Musculoskeletal: No Neurologic: No Psychiatric: No Reproductive: No Respiratory: No Radiation Therapy: No Sleep Apnea: No Thyroid Disease: No ?: Unknown LMP: 10/11/17 : 0 Past Surgical History Other Surgery: Yes (nose sx) Social History Alcohol Use: No Tobacco Use: No Substance Use: No Allergies-Medications (Allergen,Severity, Reaction): Coded Allergies: No Known Allergies (Verified Adverse Reaction, Unknown, 10/31/17) Reported Meds & Prescriptions Reported Meds & Active Scripts Active No Active Prescriptions or Reported Medications Review of Systems General / Constitutional: No: Fever, Chills Eyes: No: Blurred Vision HENT: Positive: Headaches Cardiovascular: No: Chest Pain or Discomfort Respiratory: No: Shortness of Breath Gastrointestinal: No: Nausea, Vomiting Musculoskeletal: No: Myalgias, Edema Skin: No Rash, No Change in Pigmentation Neurologic: No: Weakness, Dizziness Physical Exam Narrative GENERAL: Awake and alert, in no acute distress. SKIN: 4cm linear laceration through the right eyebrow. HEAD: Atraumatic. Normocephalic. EYES: Pupils equal and round and reactive. No scleral icterus. EOMI. ENT: Mucous membranes pink and moist. NECK: Trachea midline. No JVD. No Cervical spine tenderness. CARDIOVASCULAR: Regular rate and rhythm. No murmur appreciated. RESPIRATORY: No accessory muscle use. Clear to auscultation. Breath sounds equal bilaterally. MUSCULOSKELETAL: No obvious deformities. No clubbing. No cyanosis. No edema. NEUROLOGICAL: Awake and alert. No obvious cranial nerve deficits. Motor grossly within normal limits. Normal speech. Data Data Last Documented VS Vital Signs Date Time Temp Pulse Resp B/P (MAP) Pulse Ox O2 Delivery O2 Flow Rate FiO2 10/31/17 19:57 98.8 103 16 117/71 (86) 100 Room Air Orders Orders Ct Brain W/O Iv Contrast(Rout) (10/31/17 ) Tetanus/Diphtheria Tox Adult (Tetanus/Di (10/31/17 23:00) MDM Medical Decision Making Medical Screen Exam Complete: Yes Emergency Medical Condition: Yes Medical Record Reviewed: Yes Differential Diagnosis laceration vs head injury vs abrasion Narrative Course Patient is a 22 year old female who comes in after hitting her head in a basketball game. Exam shows a laceration through her right eyebrow. Laceration repaired by PIPE Sheets. Tetanus updated. CT head performed shows no acute abnormalities. Advised to return in 5 days for suture removal. Advised to return at any time for any worsening symptoms. Diagnosis Primary Impression: Laceration of face Qualified Codes: S01.81XA - Laceration without foreign body of other part of head, initial encounter Patient Instructions: General Instructions, Laceration (ED) Additional Instructions: Follow up with your doctors. Return in 5 days for suture removal. Keep the wound clean and dry. Return for any worsening symptoms. Scripts No Active Prescriptions or Reported Meds Disposition: 01 DISCHARGE HOME Condition: Stable Laura Rodrigues MD Oct 31, 2017 22:52
[2017-10-31] MEDS ORDERED: TETANUS/DIPHTHERIA TOXOID ADULT 0.5 ML VIAL IM ONE (23:00)
--- NOTE | 2017-10-31 23:18 | PD ---
Physical Exam Date Seen by Provider: Oct 31, 2017 Time Seen by Provider: 23:16 Narrative Skin: Patient has a 3 cm laceration to her right eyebrow. Wound is somewhat widened. Data Data Last Documented VS Vital Signs Date Time Temp Pulse Resp B/P (MAP) Pulse Ox O2 Delivery O2 Flow Rate FiO2 10/31/17 19:57 98.8 103 16 117/71 (86) 100 Room Air Orders Orders Ct Brain W/O Iv Contrast(Rout) (10/31/17 ) Tetanus/Diphtheria Tox Adult (Tetanus/Di (10/31/17 23:00) MDM Medical Record Reviewed: Yes Supervised Visit with IDANIA: Yes Differential Diagnosis MDM: High Differential diagnoses: Fracture, sprain, strain, dislocation, contusion, neurovascular injury Narrative Course Patient lacerations closed sutures Procedures Procedure Narrative LACERATION LOCATION: Right eyebrow LENGTH: 3 cm NUMBER OF STITCHES/TAVO: 9 REPAIR: The area of the laceration was prepped with Betadine and sterilely draped. The laceration was infiltrated with 1% lidocaine with epinephrine. The wound was copiously irrigated and explored without evidence of foreign body , tendon injury or neurovascular injury. The wound was closed using 6-0 Prolene. This was a simple single layer repair. A sterile dressing was applied. The patient was advised to keep the dressing clean and dry. Patient tolerated the procedure well. Diagnosis Primary Impression: Facial laceration Additional Impression: Facial contusion Patient Instructions: General Instructions Additional Instruction: Rest. Ice pack tonight. Tylenol or Advil for pain. Daily wound care with soap, water, Neosporin. Sutures out in 5 days. Sunscreen and mederma for 6 months. Return to the ER for any problems. Med/Other Pt SpecificInfo: Wound Care Scripts No Active Prescriptions or Reported Meds Disposition: 01 DISCHARGE HOME Condition: Stable Prefecto Sheets Oct 31, 2017 23:18
--- NOTE | 2017-11-01 00:35 | RADRPT ---
EXAM DATE/TIME: 10/31/2017 23:27 [facility] COMPARISON: No previous studies available for comparison. INDICATIONS : Laceration above right eye from sports injury. RADIATION DOSE: 56.35 CTDIvol (mGy) MEDICAL HISTORY : Gastritis. SURGICAL HISTORY : None. ENCOUNTER: Initial ACUITY: 1 day PAIN SCALE: 4/10 LOCATION: Right cranial TECHNIQUE: Multiple contiguous axial images were obtained of the head. Using automated exposure control and adj ustment of the mA and/or kV according to patient size, radiation dose was kept as low as reasonably a chievable to obtain optimal diagnostic quality images. DICOM format image data is available electro nically for review and comparison. FINDINGS: CEREBRUM: The ventricles are normal for age. No evidence of midline shift, mass lesion, hemorrhage or acute in farction. No extra-axial fluid collections are seen. POSTERIOR FOSSA: The cerebellum and brainstem are intact. The 4th ventricle is midline. The cerebellopontine angle i s unremarkable. EXTRACRANIAL: The visualized portion of the orbits is intact. SKULL: The calvaria is intact. No evidence of skull fracture. CONCLUSION: 1. Negative noncontrast CT brain. Larry Thomas MD on November 01, 2017 at 0:33 Board Certified Radiologist. This report was verified electronically.
== END 2017-11-01 01:00 | disposition home or self-care (01) ==
LOC: NEPD 19:47
DX: S01.111A Laceration without foreign body of right eyelid and periocular area, initial encounter (principal); W51.XXXA Accidental striking against or bumped into by another person, initial encounter; Y93.67 Activity, basketball; Z23 Encounter for immunization
CPT/HCPCS: 12013; 70450; 90471; 90714